=== PATIENT | female | born 1965 | race Caucasian/White ===

== ENCOUNTER 2019-10-06 17:06 | Emergency (ER) | payer MEDICARE ==
[~2019-10-06] VITALS: Ht 160 cm; Wt 49.9 kg
[2019-10-06] MEDS ORDERED: KETOROLAC TROMETHAMINE 15 MG INJ ONE (17:26)
[2019-10-06] MEDS ORDERED: ONDANSETRON 4 MG/2 ML VIAL ONE ×2 (17:27→18:11)
[2019-10-06] MEDS ORDERED: HYDROMORPHONE 1 MG/1 ML DISP.SYRIN ONE (17:27)
[2019-10-06] MEDS ORDERED: IV NORMAL SALINE 250 ML IV ONE (17:28)
[2019-10-06] MEDS ORDERED: IOHEXOL 300MG/ML 100 ML INFUS..BTL ONE (17:28)
[2019-10-06] MEDS ORDERED: SWABABLE VALVE TRANSFER SET EA MC ONE (17:28)
[2019-10-06] MEDS ORDERED: IV NORMAL SALINE 1000 ML BAG IV ONE (17:30)
[2019-10-06] MEDS ORDERED: HYDROMORPHONE 1 MG/1 ML DISP.SYRIN IV ONE (17:30)
[2019-10-06] MEDS ORDERED: ONDANSETRON 4 MG/2 ML VIAL IV ONE ×2 (17:30→18:15)
[2019-10-06] MEDS ORDERED: KETOROLAC TROMETHAMINE 15 MG INJ IVP ONE (17:30)
[2019-10-06 17:35] LABS: BASOPHILS # (AUTO) 0.1 K/uL (0.0-8.0); BASOPHILS % (AUTO) 0.6 % (0.0-2.0); HEMATOCRIT 37.7 % (31.2-41.9); HEMOGLOBIN 12.5 g/dL (10.9-14.3); LYMPHOCYTES # (AUTO) 0.7 K/uL (20.0-40.0); LYMPHOCYTES % (AUTO) 7.8 % (20.5-51.5); MEAN CORPUSCULAR HEMOGLOBIN 29.4 uug (24.7-32.8); MEAN CORPUSCULAR HGB CONC 33 g/dL (32.3-35.6); MEAN CORPUSCULAR VOLUME 88.4 fL (75.5-95.3); MONOCYTES # (AUTO) 0.4 K/uL (2.0-10.0); MONOCYTES % (AUTO) 4.6 % (0.0-11.0); NEUTROPHILS # (AUTO) 7.9 K/uL (1.8-8.9); PLATELET COUNT (AUTO) 358 K/uL (179-408); RED BLOOD CELL COUNT(AUTO) 4.26 MIL/uL (3.63-4.92)
[2019-10-06 17:54] LABS: POTASSIUM 3.8 mmol/L (3.5-5.1)
[2019-10-06 17:58] LABS: BILIRUBIN,DIRECT 0.2 mg/dL (0.0-0.2); BILIRUBIN,TOTAL 0.7 mg/dL (0.2-1.0); TOTAL PROTEIN, SERUM 7.4 g/dL (6.4-8.2)
[2019-10-06] MEDS ORDERED: LORAZEPAM 2 MG/1 ML VIAL ONE ×2 (18:11→18:58)
[2019-10-06] MEDS ORDERED: LORAZEPAM 2 MG/1 ML VIAL IV ONE ×2 (18:15→19:00)
[2019-10-06] MEDS ORDERED: METOCLOPRAMIDE HCL 10 MG/2 ML VIAL ONE (18:58)
[2019-10-06] MEDS ORDERED: METOCLOPRAMIDE HCL 10 MG/2 ML VIAL IV ONE (19:00)
--- NOTE | 2019-10-06 19:05 | NUR ---
Patient transported to CT in stable condition.
--- NOTE | 2019-10-06 19:15 | NUR ---
Patient back in room from CT in stable condition.
--- NOTE | 2019-10-06 19:20 | NUR ---
BIB [facility] for c/o n/v. A/Ox4. Patient appears very shaky, tremulous, does not speak in complete sentences and refuses to provide answers due to her eqpigastric pain. Respiratory rate tachypneic, instructed patient to slow down her breathing. No acute cardiovascular distress noted.
[2019-10-06 20:17] LABS: ETHANOL < 3 MG/DL (0-0)
[2019-10-06] MEDS ORDERED: PANTOPRAZOLE SODIUM 40 MG VIAL IV ONE (20:30)
[2019-10-06] MEDS ORDERED: LIDOCAINE VISCUS 2% 15 ML UDC MM ONE (20:30)
[2019-10-06] MEDS ORDERED: MAG HYDROX/AL HYDROX/SIMETH 30 ML LIQUID UDC PO ONE (20:30)
[2019-10-06] MEDS ORDERED: LIDOCAINE VISCUS 2% 15 ML UDC ONE (21:04)
[2019-10-06] MEDS ORDERED: PANTOPRAZOLE SODIUM 40 MG VIAL ONE (21:04)
[2019-10-06] MEDS ORDERED: MAG HYDROX/AL HYDROX/SIMETH 30 ML LIQUID UDC ONE (21:04)
--- NOTE | 2019-10-06 22:08 | NUR ---
IV removed. Catheter intact and site benign. Pressure and 4x4 gauze applied to site. No bleeding noted.
[2019-10-06 22:11] VITALS: BP 115/66
[2019-10-08] MEDS ORDERED: ONDA4TAB5 SL (16:44)
[2019-10-08] MEDS ORDERED: QUET200T PO (16:44)
== END 2019-10-06 22:22 | disposition home or self-care (01) ==
LOC: ER 17:08
DX: K29.70 Gastritis, unspecified, without bleeding (principal); F15.90 Other stimulant use, unspecified, uncomplicated; Z88.5 Allergy status to narcotic agent; Z95.0 Presence of cardiac pacemaker
CPT/HCPCS: 36415; 71045; 74177; 80048; 80076; 83605; 83690; 84484; 85025; 93005; 96361; 96374; 96375; 96376; 99284; C9113; G0480; J1170; J1885; J2060 ×2; J2405 ×2; J2765; Q9967; 70030-TC; A4663; J7030; J7050

== ENCOUNTER 2019-10-08 13:56 | Inpatient (IN) | END 2019-10-15 15:30 | DRG 439 | DX: K85.10 Biliary acute pancreatitis without necrosis or infection (principal); N39.0 Urinary tract infection, site not specified; E87.6 Hypokalemia; Z98.84 Bariatric surgery status; Z90.710 Acquired absence of both cervix and uterus; K31.84 Gastroparesis; Z95.0 Presence of cardiac pacemaker; F41.9 Anxiety disorder, unspecified; D64.9 Anemia, unspecified; K83.8 Other specified diseases of biliary tract; Z90.49 Acquired absence of other specified parts of digestive tract; K29.00 Acute gastritis without bleeding; K20.9 Esophagitis, unspecified; K59.00 Constipation, unspecified; Z63.8 Other specified problems related to primary support group ==

== ENCOUNTER 2019-10-15 13:33 | Inpatient (IN) | payer MEDICARE ==
[~2019-10-15] VITALS: Ht 160 cm; Wt 55.3 kg
[~2019-10-15 13:33] MED LIST: ONDA4TAB5 SL; QUET200T PO
--- NOTE | 2019-10-15 15:15 | NUR ---
PATIENT ADMITTED FROM MEDSURGE FLOOR, FROM HOME, TO REHAB UNIT FOR GENERALIZED WEAKNESS, AND DECONDITIONING, ALERT, ORIENTED X4, VERBALLY RESPONSIVE ,NO SOB,RESP EVEN NONLABORED, ABLE TO VERBALIZE HER NEEDS KNOW, SKIN WARM AND DRY TO TOUCH, PATIENT STILL ON FULL LIQUID DIET, HISTORY OF MULTIPLE ABDOMINAL SURGERIES, ADMITTED ON MEDSURGE FLOOR FOR ABDOMINAL PAIN AND IMPACTION, ABDOMEN SOFT AND NONTENDER. BEDSIDE, PATIENT HAS HER PURSE AND SOME MONEY IN IT, EXPLAINED TO AND PATIENT THAT ANYTHING IS NOT PLACED IN SAFE, FACILITY IS NOT RESPONSIBLE FOR LOSS. PATIENT AND VERBALIZED UNDERSTANDING OF IT, AND REFUSED TO PUT IN SAFE, STATED HE IS GOING TO TAKE IT HOME. PATIENT AND REFUSED TO COUNT THE MONEY WITH NURSE. PATIENT GETS EPISODE OF SEVERE ANXIETY, REQUESTED ATIVAN TO BE GIVEN ORDERED, DR REMY APPROVED IT AND DR REMY STATED SHE IS GOING TO RECON THE MEDS. NO SKIN ISSUES NOTED, EXCEPT MILD RASH TO RIGHT CHEST.
[2019-10-15] MEDS ORDERED: LORA2TAB95 PO (16:00)
[2019-10-15 16:46] VITALS: BP 115/70
[2019-10-15] MEDS: LORAZEPAM 1 MG TABLET PO SCH (17:45)
[2019-10-15 19:32] VITALS: BP 108/68
[2019-10-15] MEDS: QUETIAPINE FUMARATE 200 MG TABLET PO SCH (20:15)
--- NOTE | 2019-10-15 21:15 | NUR ---
resting in bed upon initial rounds. at bedside. VSS. Needs attended. Voiding freely in the bedpan. Admitted for general weakness and deconditioning. Denies any pain at this time. Will monitor patient. Kept comfortable.Fall precautions maintained. Siderails up for safety. Call nicolas within reach.
[2019-10-15] MEDS: MIRTAZAPINE 15 MG TABLET PO SCH (22:56)
[2019-10-16 05:56] VITALS: BP 126/66
--- NOTE | 2019-10-16 06:50 | NUR ---
slept well most of the shift. in with patient. needs attended. voiding freely in bedpan. denies any pain nor any discomfort. seen by Dr Khan. Remeron given per MD's order. VSS. No acute distress noted. Will monitor patient.
[2019-10-16 08:00] VITALS: BP 115/60
[2019-10-16] MEDS: LORAZEPAM 1 MG TABLET PO SCH ×2 (08:36→18:04)
[2019-10-16] MEDS: QUETIAPINE FUMARATE 200 MG TABLET PO SCH ×4 (08:37→20:42)
[2019-10-16] MEDS ORDERED: Medication Not On Formulary EA (Lorazepam (Ativan) 2 MG) PO SCH (09:00)
--- NOTE | 2019-10-16 10:36 | NUR ---
INTERDISCIPLINARY TEAM CONFERENCE
--- NOTE | 2019-10-16 10:48 | NUR ---
10:20am: BELGICA received a phone call from Davin at [facility], , who was following up on the APS report that this SW had made yesterday, 10/15/19 (see SS note in med/surg chart, #[id number]). Davin wanted to inquire about patient's location. BELGICA informed Lizbeth that patient is currently in the hospital's ARU unit. Davin initially stated that the assigned APS SW will visit the patient at home on 10/23/19, but when this SW informed Davin that patient will probably be in ARU for about 10 days, Davin stated that she will then have the assigned APS SW visit the patient at the hospital. Davin stated that the assigned [facility] SW is Moni Martinez, . BELGICA informed ARU SAMPSON Moura, ARU SW's Elliei and Svitlana, ARU Bread Slicer Machine Berry Gray, and Director Starr Sandoval of all above.
--- NOTE | 2019-10-16 13:58 | NUR ---
Social Work Note: log pond worker met with this patient and patient presented anxious. Patient stated that she is living with her friend Rosalba [phone]. Patient expressed her friend is involved in her care, but didnt mention that her boyfriend is involved. Her boyfriend was present while I was asking her these questions. She stated that she has two children one is 34 and the other is 32. She said that one is out of town and the other is on vacation. She refused any resources and said that her friend will take care of her. Something feels off. Addendum: 10/16/19 at 1400 by BELGICA RIGGINS Social Work Note: log pond worker met with this patient and patient presented anxious. Patient stated that she is living with her friend Rosalba [phone]. Patient expressed her friend is involved in her care, but didnt mention that her boyfriend is involved. Her boyfriend was present while publicity writer was asking her these questions. She stated that she has two children one is 34 and the other is 32. She said that one is out of town and the other is on vacation. She refused any resources and said that her friend will take care of her. log pond worker will follow up and provide patient with resources if needed.
--- NOTE | 2019-10-16 14:00 | NUR ---
Prop Sawyer Note/APS Contact: cinder worker spoke to Moni ([phone]) and updated her that patient lives with her friend Rosalba ([phone]) and that she is involved in her care. cinder worker also informed that patient has two sons one 34 and the other 32 and that they are both out of town. Moni will follow up with this case with medical social consultant.
[2019-10-16] MEDS ORDERED: PERP4TAB11 PO (16:46)
[2019-10-16] MEDS ORDERED: FLUD0.1T PO (16:46)
[2019-10-16] MEDS ORDERED: GABA-534 PO (16:46)
[2019-10-16] MEDS ORDERED: BUSP15TA3 PO (16:46)
[2019-10-16] MEDS ORDERED: LORA-258 PO (16:46)
[2019-10-16] MEDS ORDERED: AMIT100T2 PO (16:46)
[2019-10-16] MEDS ORDERED: HYDR50CA5 PO (16:46)
[2019-10-16] MEDS ORDERED: MONT10TA25 PO (16:46)
[2019-10-16] MEDS ORDERED: ESOM40CA PO (16:46)
[2019-10-16] MEDS ORDERED: MIDO5TAB5 PO (16:46)
[2019-10-16] MEDS ORDERED: QUET200T PO (16:46)
[2019-10-16] MEDS ORDERED: CITA40TA11 PO (16:46)
[2019-10-16 17:00] VITALS: BP 106/51
--- NOTE | 2019-10-16 18:32 | NUR ---
Patient is alert, oriented x 3 not in any distress, on room air. She denies any pain or discomfort. Due medications administered and tolerated well. Assisted patient to the bathroom to void then back to bed. Needs attended to promptly. Boyfriend at bedside. Call light and frequently used items placed within reach.
--- NOTE | 2019-10-16 19:40 | NUR ---
Received patient in bed. AAO x4. Not in acute distress or SOB. Able to make needs known. On room air. No Complain of pain. Her boyfriend at the bedside. Physical assessment done. Fall prevention observed. Safety measures maintained. Bed in low and lock position, alarm on, side rails up x2 for safety. Call light and frequently used items within reach. Continue to monitor.
[2019-10-16 19:41] VITALS: BP 125/65
[2019-10-16] MEDS: MIRTAZAPINE 15 MG TABLET PO SCH (20:42)
[2019-10-16] MEDS ORDERED: MIRTAZAPINE 15 MG TABLET PO SCH (21:00)
--- NOTE | 2019-10-16 21:45 | NUR ---
Patient asked for Amitriptyline tab, stated that she takes this medication for sleep. Contacted the medical center on-call doctor, received order of amitriptyline 50 mg HS from Wade YIN. Patient has also Remeron 7.5 mg tab scheduled at 2100. According to the pharmacy, Remeron was DC and amitriptyline 50 mg was replaced to 2100 scheduled medication, effective from 10/17/19. Patient was aware of new order.
[2019-10-17 05:24] VITALS: BP 104/52
[2019-10-17 08:07] VITALS: BP 107/67
[2019-10-17] MEDS: QUETIAPINE FUMARATE 200 MG TABLET PO SCH ×4 (08:45→21:02)
[2019-10-17] MEDS: LORAZEPAM 1 MG TABLET PO SCH (08:45)
--- NOTE | 2019-10-17 10:20 | NUR ---
Dr. Khan in the unit, received an order to advance diet as tolerated.
[2019-10-17] MEDS ORDERED: HYDROXYZINE PAMOATE 50 MG PO PRN (10:30)
--- NOTE | 2019-10-17 10:39 | NUR ---
Notified Dr. Khan regarding home medication list confirmed from [facility] pharmacy and per MD she will look into it.
[2019-10-17] MEDS: FLUDROCORTISONE ACETATE 0.1 MG TABLET PO SCH ×2 (12:54→18:11)
[2019-10-17] MEDS: GABAPENTIN 300 MG CAPSULE PO SCH ×3 (12:56→21:02)
[2019-10-17] MEDS: busPIRone 5 MG TABLET PO SCH ×3 (12:59→21:02)
[2019-10-17] MEDS: NYSTATIN SUSPENSION 5 ML LIQUID UDC PO SCH ×3 (12:59→23:49)
[2019-10-17] MEDS ORDERED: Medication Not On Formulary EA (Buspirone Hcl 15 MG) PO SCH (13:00)
[2019-10-17] MEDS: MIDODRINE HCL 5 MG TABLET PO SCH ×2 (13:06→18:12)
--- NOTE | 2019-10-17 15:00 | NUR ---
Patient is up ambulating with walker with physical therapist, no complain of any pain or discomfort at this time.
[2019-10-17] MEDS ORDERED: PERPHENAZINE 4 MG TABLET PO SCH (17:00)
[2019-10-17 17:45] VITALS: BP 101/64
[2019-10-17] MEDS: LORAZEPAM 0.5 MG TABLET PO SCH (18:10)
[2019-10-17] MEDS ORDERED: Medication Not On Formulary EA (Amitriptyline Hcl 100 MG) PO SCH (21:00)
[2019-10-17] MEDS ORDERED: AMITRIPTYLINE HCL 50 MG TABLET PO SCH (21:00)
[2019-10-17] MEDS: AMITRIPTYLINE HCL 50 MG TABLET PO SCH (21:02)
[2019-10-17] MEDS: MONTELUKAST SODIUM 10 MG TABLET PO SCH (21:02)
[2019-10-17 22:28] VITALS: BP 96/60
[2019-10-18] MEDS: NYSTATIN SUSPENSION 5 ML LIQUID UDC PO SCH ×4 (06:01→23:28)
[2019-10-18] MEDS: PANTOPRAZOLE SODIUM 40 MG TABLET.DR PO SCH (06:02)
[2019-10-18 06:31] VITALS: BP 90/68
[2019-10-18 08:15] VITALS: BP 100/62
[2019-10-18] MEDS: FLUDROCORTISONE ACETATE 0.1 MG TABLET PO SCH ×2 (08:44→17:01)
[2019-10-18] MEDS: QUETIAPINE FUMARATE 200 MG TABLET PO SCH ×4 (08:44→21:43)
[2019-10-18] MEDS: MIDODRINE HCL 5 MG TABLET PO SCH ×3 (08:44→17:02)
[2019-10-18] MEDS: LORAZEPAM 0.5 MG TABLET PO SCH ×2 (08:44→17:01)
[2019-10-18] MEDS: GABAPENTIN 300 MG CAPSULE PO SCH ×4 (08:44→21:43)
[2019-10-18] MEDS: CITALOPRAM 20 MG TABLET PO SCH (08:47)
[2019-10-18] MEDS: busPIRone 5 MG TABLET PO SCH ×4 (08:49→21:41)
[2019-10-18] MEDS ORDERED: Medication Not On Formulary EA (Esomeprazole Mag Trihydrate (Nexium) 40 MG) PO SCH (09:00)
[2019-10-18] MEDS ORDERED: Medication Not On Formulary EA (Citalopram Hydrobromide (Citalopram Hbr) 40 MG) PO SCH (09:00)
[2019-10-18 16:00] VITALS: BP 95/62
--- NOTE | 2019-10-18 19:53 | NUR ---
pt in bed, alert and orientation. states she is very sleepy. Denies any pain, no fever, no nausea and no vomiting. Ambulates with johana Addendum: 10/19/19 at 0200 by ELICIA PARSON RN pt in bed, alert and orientation. states she is very sleepy. Denies any pain, no fever, no nausea and no vomiting. Ambulates with walker
[2019-10-18 20:27] VITALS: BP 96/58
[2019-10-18] MEDS: AMITRIPTYLINE HCL 50 MG TABLET PO SCH (21:42)
[2019-10-18] MEDS: MONTELUKAST SODIUM 10 MG TABLET PO SCH (21:43)
[2019-10-19 05:10] VITALS: BP 114/61
[2019-10-19] MEDS: NYSTATIN SUSPENSION 5 ML LIQUID UDC PO SCH ×4 (06:06→23:15)
[2019-10-19] MEDS: PANTOPRAZOLE SODIUM 40 MG TABLET.DR PO SCH (06:06)
[2019-10-19] MEDS: GABAPENTIN 300 MG CAPSULE PO SCH ×4 (08:43→21:07)
[2019-10-19] MEDS: LORAZEPAM 0.5 MG TABLET PO SCH ×2 (08:43→17:21)
[2019-10-19] MEDS: busPIRone 5 MG TABLET PO SCH ×4 (08:44→21:09)
[2019-10-19] MEDS: MIDODRINE HCL 5 MG TABLET PO SCH ×3 (08:44→17:24)
[2019-10-19] MEDS: CITALOPRAM 20 MG TABLET PO SCH (08:45)
[2019-10-19] MEDS: FLUDROCORTISONE ACETATE 0.1 MG TABLET PO SCH ×2 (08:45→17:21)
[2019-10-19] MEDS: QUETIAPINE FUMARATE 200 MG TABLET PO SCH ×4 (08:46→21:08)
[2019-10-19 09:10] VITALS: BP 100/64
[2019-10-19] MEDS: BISACODYL 10 MG SUPP.RECT RC PRN (12:20)
[2019-10-19 16:20] VITALS: BP 88/42
[2019-10-19 20:14] VITALS: BP 98/56
[2019-10-19] MEDS: MONTELUKAST SODIUM 10 MG TABLET PO SCH (21:08)
[2019-10-19] MEDS: AMITRIPTYLINE HCL 50 MG TABLET PO SCH (21:09)
--- NOTE | 2019-10-20 05:03 | NUR ---
Received patient in bed. AAO x4. Not in acute distress or SOB. Able to make needs known. Her boyfriend at the bedside. Physical assessment done. All due medications given as ordered and well tolerated. Fall prevention observed. Safety measures maintained. All needs attended promptly. Bed in low and lock position, alarm on, side rails up x2 for safety. Call light and frequently used items within reach. Continue to monitor and will endorse to the oncoming nurse accordingly.
[2019-10-20 05:22] VITALS: BP 93/56
[2019-10-20] MEDS: PANTOPRAZOLE SODIUM 40 MG TABLET.DR PO SCH (06:23)
[2019-10-20] MEDS: NYSTATIN SUSPENSION 5 ML LIQUID UDC PO SCH ×3 (06:23→17:19)
[2019-10-20 07:43] VITALS: BP 98/53
[2019-10-20] MEDS: QUETIAPINE FUMARATE 200 MG TABLET PO SCH ×4 (08:21→20:53)
[2019-10-20] MEDS: busPIRone 5 MG TABLET PO SCH ×4 (08:21→20:52)
[2019-10-20] MEDS: LORAZEPAM 0.5 MG TABLET PO SCH ×2 (08:22→17:18)
[2019-10-20] MEDS: GABAPENTIN 300 MG CAPSULE PO SCH ×4 (08:22→20:52)
[2019-10-20] MEDS: CITALOPRAM 20 MG TABLET PO SCH (08:22)
[2019-10-20] MEDS: FLUDROCORTISONE ACETATE 0.1 MG TABLET PO SCH ×2 (08:22→17:19)
[2019-10-20] MEDS: MIDODRINE HCL 5 MG TABLET PO SCH ×3 (08:22→17:19)
--- NOTE | 2019-10-20 09:33 | NUR ---
Received pt. in bed A/Ox4 verbally responsive and able to make her needs known. In no acute distress, tolerating RA well. Significant other at bedside for support. All due AM medications administered as ordered with no ASE. Pt. teaching provided regarding meds. No new skin condition noted, skin remain intact. All pt. needs attended and met promptly. Safety measures in place. Call light and all frequently used items within pt. reach. Will continue to monitor accordingly.
--- NOTE | 2019-10-20 13:42 | NUR ---
Pt c/o of indigestion. Dr. Liu aware and ordered Mylanta 30 mg po q6h PRN. Orders noted and carried out. Pt. made aware.
[2019-10-20] MEDS ORDERED: MAG HYDROX/AL HYDROX/SIMETH 30 ML LIQUID UDC PO PRN (13:45)
[2019-10-20 14:57] VITALS: BP 91/52
--- NOTE | 2019-10-20 18:01 | NUR ---
EOS: No significant change during this shift. All due medications administered as ordered. SBP in the 90's, scheduled Midodrine given, denies lightheadedness or dizziness. No new skin condition. All pt. needs attended and met promptly. Safety measures in place. Call light and all frequently used items within pt. reach.
[2019-10-20 20:40] VITALS: BP 120/57
[2019-10-20] MEDS: MONTELUKAST SODIUM 10 MG TABLET PO SCH (20:52)
[2019-10-20] MEDS: AMITRIPTYLINE HCL 50 MG TABLET PO SCH (20:53)
--- NOTE | 2019-10-20 21:00 | NUR ---
Patient developed a low blood pressure. BP checked two times: 84/52, 81/51 HR:91. No other symptoms presents. Encouraged patient to drink more water and juice. Rechecked BP after one hour and drinking more fluid. BP: 120/57 HR:90. Continue to monitor.
[2019-10-21] MEDS: NYSTATIN SUSPENSION 5 ML LIQUID UDC PO SCH ×4 (00:06→17:01)
[2019-10-21 04:00] VITALS: BP 87/56
[2019-10-21] MEDS: PANTOPRAZOLE SODIUM 40 MG TABLET.DR PO SCH (06:16)
[2019-10-21 07:32] LABS: BASOPHILS % (AUTO) 1.3 % (0.0-2.0); EOSINOPHILS % (AUTO) 1.4 % (0.0-7.0); HEMATOCRIT 33.5 % (31.2-41.9); HEMOGLOBIN 10.9 g/dL (10.9-14.3); LYMPHOCYTES # (AUTO) 0.8 K/uL (20.0-40.0); LYMPHOCYTES % (AUTO) 32.9 % (20.5-51.5); MEAN CORPUSCULAR HEMOGLOBIN 29.4 uug (24.7-32.8); MEAN CORPUSCULAR HGB CONC 33 g/dL (32.3-35.6); MEAN CORPUSCULAR VOLUME 90.3 fL (75.5-95.3); MONOCYTES # (AUTO) 0.5 K/uL (2.0-10.0); MONOCYTES % (AUTO) 18.7 % (0.0-11.0); NEUTROPHILS # (AUTO) 1.1 K/uL (1.8-8.9); NEUTROPHILS % (AUTO) 45.7 % (38.5-71.5); PLATELET COUNT (AUTO) 266 K/uL (179-408); RED BLOOD CELL COUNT(AUTO) 3.71 MIL/uL (3.63-4.92); WHITE BLOOD COUNT (AUTO) 2.5 K/uL (3.8-11.8)
[2019-10-21 07:40] VITALS: BP 99/52
[2019-10-21 07:47] LABS: BILIRUBIN,TOTAL 0.2 mg/dL (0.2-1.0); CREATININE 0.8 mg/dL (0.6-1.3); MAGNESIUM 2.2 mg/dL (1.8-2.4); PHOSPHOROUS 3.8 mg/dL (2.5-4.9); POTASSIUM 3.8 mmol/L (3.5-5.1); TOTAL PROTEIN, SERUM 6.4 g/dL (6.4-8.2)
[2019-10-21] MEDS: GABAPENTIN 300 MG CAPSULE PO SCH ×4 (08:38→20:58)
[2019-10-21] MEDS: LORAZEPAM 0.5 MG TABLET PO SCH ×2 (08:39→16:54)
[2019-10-21] MEDS: MIDODRINE HCL 5 MG TABLET PO SCH ×3 (08:40→16:55)
[2019-10-21] MEDS: busPIRone 5 MG TABLET PO SCH ×4 (08:40→20:58)
[2019-10-21] MEDS: CITALOPRAM 20 MG TABLET PO SCH (08:41)
[2019-10-21] MEDS: QUETIAPINE FUMARATE 200 MG TABLET PO SCH ×4 (08:41→20:58)
[2019-10-21] MEDS: FLUDROCORTISONE ACETATE 0.1 MG TABLET PO SCH ×2 (08:42→16:54)
[2019-10-21] MEDS: BISACODYL 10 MG SUPP.RECT RC PRN (09:20)
[2019-10-21 09:52] LABS: EOSINOPHILS % (MANUAL) 1 % (0-8); LYMPHOCYTES % (MANUAL) 32 % (20-40); MONOCYTES % (MANUAL) 18 % (2-10)
[2019-10-21 09:53] LABS: NEUTROPHILS % (MANUAL) 49 % (42-75)
--- NOTE | 2019-10-21 10:06 | NUR ---
Notified Dr. Liu regarding abnormal results with no new orders.
[2019-10-21 14:49] VITALS: BP 94/59
[2019-10-21] MEDS: HYDROMORPHONE HCL 2 MG TABLET PO PRN (18:47)
--- NOTE | 2019-10-21 19:43 | NUR ---
Received an order from Dr. Liu for Ativan 0.5mg PO Q8hrs PRN.
--- NOTE | 2019-10-21 20:00 | NUR ---
Received patient laying in bed. Family at bedside. No acute distress noted. A/O x4. Denies SOB. Reports epigastric pain. Pace maker on the left upper chest wall. senior care assessment done. Skin intact. Vitals stable. B/P 96/66. Safety initiated. Call light within reach. Will closely monitor.
[2019-10-21] MEDS: MONTELUKAST SODIUM 10 MG TABLET PO SCH (20:59)
[2019-10-21 21:31] VITALS: BP 107/43
[2019-10-21] MEDS: AMITRIPTYLINE HCL 50 MG TABLET PO SCH (22:31)
[2019-10-21] MEDS: ONDANSETRON HCL 4 MG TABLET PO PRN (22:31)
[2019-10-22] MEDS: NYSTATIN SUSPENSION 5 ML LIQUID UDC PO SCH ×5 (00:09→23:13)
[2019-10-22] MEDS: HYDROMORPHONE HCL 2 MG TABLET PO PRN ×4 (00:09→22:41)
--- NOTE | 2019-10-22 00:09 | NUR ---
Patient c/o of epigastric pain 05/30. Vital signs stable. Dilaudid given, will closely monitor.
--- NOTE | 2019-10-22 05:35 | NUR ---
Patient slept intermittently t/o shift. C/O epigastric pain 04/29. Medication given, stated relief. Vital signs stable. Safety and comfort measures maintained t/o shift. All meds given as ordered. All needs met.
[2019-10-22 05:48] VITALS: BP 112/59
[2019-10-22] MEDS: PANTOPRAZOLE SODIUM 40 MG TABLET.DR PO SCH (06:19)
[2019-10-22] MEDS: LORAZEPAM 0.5 MG TABLET PO PRN (06:19)
--- NOTE | 2019-10-22 06:24 | NUR ---
Patient reports feeling anxious. Ativan given. Will continue to monitor.
[2019-10-22 07:30] VITALS: BP 111/44
[2019-10-22] MEDS: ONDANSETRON HCL 4 MG TABLET PO PRN ×2 (07:46→16:28)
[2019-10-22] MEDS: GABAPENTIN 300 MG CAPSULE PO SCH ×4 (08:30→21:50)
[2019-10-22] MEDS: CITALOPRAM 20 MG TABLET PO SCH (08:30)
[2019-10-22] MEDS: FLUDROCORTISONE ACETATE 0.1 MG TABLET PO SCH ×2 (08:30→16:28)
[2019-10-22] MEDS: QUETIAPINE FUMARATE 200 MG TABLET PO SCH ×4 (08:30→21:51)
[2019-10-22] MEDS: busPIRone 5 MG TABLET PO SCH ×4 (08:30→21:51)
[2019-10-22] MEDS: LORAZEPAM 0.5 MG TABLET PO SCH ×2 (08:30→17:24)
[2019-10-22] MEDS: MIDODRINE HCL 5 MG TABLET PO SCH ×3 (08:31→16:28)
[2019-10-22 15:32] VITALS: BP 87/47
--- NOTE | 2019-10-22 19:35 | NUR ---
Received patient in bed. AAO x4. Not in acute distress or SOB. Able to make needs known. Her boyfriend at the bedside. Physical assessment done. Fall prevention observed. Safety measures maintained. Bed in low and lock position, alarm on, side rails up x2 for safety. Call light and frequently used items within reach. Continue to monitor.
[2019-10-22 19:53] VITALS: BP 94/49
--- NOTE | 2019-10-22 21:00 | NUR ---
Patient developed a low blood pressure. BP checked two times: 84/48, 81/51 HR:88. No other symptoms presents. Encouraged patient to drink more water and juice. Rechecked BP after half an hour and drinking more fluid. BP: 96/49 HR:85. Continue to monitor.
[2019-10-22] MEDS: AMITRIPTYLINE HCL 50 MG TABLET PO SCH (21:52)
[2019-10-22] MEDS: MONTELUKAST SODIUM 10 MG TABLET PO SCH (21:52)
--- NOTE | 2019-10-22 22:45 | NUR ---
Patient complained of abdominal pain in the epigastric area, rated 6/10 in numeric scale and asked for Dilaudid. PRN Dilaudid 1 mg (half of the 2 mg tab) was administered. Continue to monitor.
[2019-10-23 05:40] VITALS: BP 90/41
[2019-10-23] MEDS: PANTOPRAZOLE SODIUM 40 MG TABLET.DR PO SCH (06:30)
[2019-10-23] MEDS: NYSTATIN SUSPENSION 5 ML LIQUID UDC PO SCH ×3 (06:30→17:22)
--- NOTE | 2019-10-23 06:56 | NUR ---
During morning assessment, patient complained of frequency and burning sensation of urination. Stated, "I went to the bathroom 4 times and because of that I didn't have a good sleep last night". Continue to monitor and will endorse to the day shift nurse to discuss with doctor.
[2019-10-23 07:48] VITALS: BP 95/49
[2019-10-23] MEDS: FLUDROCORTISONE ACETATE 0.1 MG TABLET PO SCH ×2 (08:36→16:33)
[2019-10-23] MEDS: CITALOPRAM 20 MG TABLET PO SCH (08:36)
[2019-10-23] MEDS: MIDODRINE HCL 5 MG TABLET PO SCH ×3 (08:36→16:33)
[2019-10-23] MEDS: GABAPENTIN 300 MG CAPSULE PO SCH ×4 (08:36→21:43)
[2019-10-23] MEDS: QUETIAPINE FUMARATE 200 MG TABLET PO SCH ×4 (08:37→21:43)
[2019-10-23] MEDS: LORAZEPAM 0.5 MG TABLET PO SCH ×2 (08:37→16:33)
[2019-10-23] MEDS: busPIRone 5 MG TABLET PO SCH ×4 (08:38→21:34)
[2019-10-23] MEDS: ONDANSETRON HCL 4 MG TABLET PO PRN ×2 (09:35→16:34)
[2019-10-23] MEDS: BISACODYL 10 MG SUPP.RECT RC PRN (10:02)
[2019-10-23 12:40] LABS: *BILIRUBIN,URIN NEGATIVE (NEGATIVE); *BLOOD, URINE NEGATIVE (NEGATIVE); *CLARITY,URINE CLEAR (CLEAR); *COLOR,URINE YELLOW (YELLOW); *KETONES,URINE NEGATIVE (NEGATIVE); *UROBILINOGEN,URINE 0.2 E.U./dl (NORMAL); LEUKOCYTE ESTERASE ,URINE TRACE (NEGATIVE); NITRITE, URINE NEGATIVE (NEGATIVE); UGLUCOSE NEGATIVE (NEGATIVE)
[2019-10-23 12:48] LABS: RBC,URINE 0-3 /HPF (0-3)
[2019-10-23 12:50] LABS: BACTERIA,URINE NONE SEEN /HPF (NONE SEEN); SQUAMOUS EPITHELIAL CELL,UR FEW /HPF (NONE SEEN)
--- NOTE | 2019-10-23 13:20 | NUR ---
INTERDISCIPLINARY TEAM CONFERENCE
[2019-10-23] MEDS: HYDROMORPHONE HCL 2 MG TABLET PO PRN ×3 (14:22→22:48)
[2019-10-23 15:01] VITALS: BP 92/43
--- NOTE | 2019-10-23 15:22 | NUR ---
Patient continue pain management if needed. Continue therapy for strenght and endurance. not in distress. no behavioral problem noted. Complaint of nausea. Zofran 4mg PRN given. tolerated well. Change zofran every 6 to jody 4 hours. MD notified. Patient complaint of pain while urinating . urine collected for UA/CS. MD aware. For dietary consult for less appetite and GI consult for abdominal pain. will continue monitor
--- NOTE | 2019-10-23 15:45 | NUR ---
Patient seen by game artist. Consider adding multivitamin and ensure BID mealtime. will continue monitor
--- NOTE | 2019-10-23 18:20 | NUR ---
Patient urinalysis result relayed to MD Liu. ordered and to start macrobid 100mg every 12 hours for 3 days.
[2019-10-23 19:43] VITALS: BP 90/50
--- NOTE | 2019-10-23 19:50 | NUR ---
PATIENT ALERT ORIENTED, NO SOB NO CHEST PAIN. PATIENT HAS NO S/S OF PAIN NO NAUSEA NO VOMITING NOTED AT THIS TIME. KEPT COMFORTABLE. WILL CONT TO MONITOR. BOYFRIEND AT BED SIDE, CALL LIGHT WITHIN REACH.
[2019-10-23] MEDS: MONTELUKAST SODIUM 10 MG TABLET PO SCH (21:34)
[2019-10-23] MEDS: AMITRIPTYLINE HCL 50 MG TABLET PO SCH (21:34)
[2019-10-23] MEDS: NITROFURANTOIN/NITROFURAN MAC 100 MG CAPSULE PO SCH (21:34)
--- NOTE | 2019-10-23 22:45 | NUR ---
WITNESSED RN SEEMA ADMINISTER DILAUDID 1MG TO PATIENT AND WASTED 1MG OF DILAUDID.
--- NOTE | 2019-10-23 22:45 | NUR ---
PATIENT GIVEN DILAUDID 1MG PO, AND WASTED 1MG.
[2019-10-24] MEDS: NYSTATIN SUSPENSION 5 ML LIQUID UDC PO SCH ×5 (00:02→23:20)
[2019-10-24 05:43] VITALS: BP 91/47
[2019-10-24] MEDS: PANTOPRAZOLE SODIUM 40 MG TABLET.DR PO SCH (06:05)
[2019-10-24] MEDS: LORAZEPAM 0.5 MG TABLET PO PRN (06:06)
--- NOTE | 2019-10-24 06:40 | NUR ---
PATIENT ALERT ORIENTED, PATIENT STILL HAS EPISODES OF ANXIETY, MEDICATED ORDERED. PATIENT CONT ON PAIN MANAGEMENT, ABDOMINAL PAIN, NO NAUSEA NO VOMITING NOTED, CONT TO MONITOR.
[2019-10-24 08:00] VITALS: BP 90/48
[2019-10-24] MEDS: LORAZEPAM 0.5 MG TABLET PO SCH ×2 (08:44→16:31)
[2019-10-24] MEDS: CITALOPRAM 20 MG TABLET PO SCH (08:45)
[2019-10-24] MEDS: GABAPENTIN 300 MG CAPSULE PO SCH ×4 (08:45→20:31)
[2019-10-24] MEDS: QUETIAPINE FUMARATE 200 MG TABLET PO SCH ×4 (08:46→20:31)
[2019-10-24] MEDS: busPIRone 5 MG TABLET PO SCH ×4 (08:47→20:32)
[2019-10-24] MEDS: NITROFURANTOIN/NITROFURAN MAC 100 MG CAPSULE PO SCH ×2 (08:47→20:31)
[2019-10-24] MEDS: FLUDROCORTISONE ACETATE 0.1 MG TABLET PO SCH ×2 (08:47→16:31)
[2019-10-24] MEDS: MIDODRINE HCL 5 MG TABLET PO SCH ×3 (08:50→16:32)
--- NOTE | 2019-10-24 15:45 | NUR ---
PATIENT IS ALERT, ORIENTED X4, VERABLLY RESPONSIVE, NO SOB, RESP EVEN NONLABORED,SKIN WARM AND DRY TO TOUCH, AMBULATORY WITH FWW, WITH SUPERVISION,, NOTED WITH SCRATCH TO RIGHT UPPER CHEST, NO SIGNS AND SYMPTOMS OF INFECTION NOTED AT SITE OF SCRATCHES, OFFERED PATIENT IF SHE WOULD LIKE TO HAVE SOME HYDROCORTISONE CREAM, PATIENT STATED NO, SHE HAS SOME LOTION SHE LIKES TO RUB ON IT. PATIENT SEEMS CALM, NO PANIC ATTACKS NOTED. PATIENT BOY FRIEND IS BEDSIDE ALL THE TIME. I
[2019-10-24 16:05] VITALS: BP 126/72
[2019-10-24] MEDS: HYDROMORPHONE HCL 2 MG TABLET PO PRN ×2 (17:48→23:46)
--- NOTE | 2019-10-24 19:40 | NUR ---
Awake during initial rounds having snacks. Boyfriend at bedside. Denies pain/discomforts at this time. Safety measure and fall precaution maintained. Continue care as planned.
[2019-10-24 19:49] VITALS: BP 96/54
[2019-10-24] MEDS: MONTELUKAST SODIUM 10 MG TABLET PO SCH (20:31)
[2019-10-24] MEDS: AMITRIPTYLINE HCL 50 MG TABLET PO SCH (20:32)
--- NOTE | 2019-10-24 23:22 | NUR ---
Nystatin suspension not given at this time, sound asleep. Boyfriend at bedside instructed nurse not to wake up patient.
--- NOTE | 2019-10-24 23:50 | NUR ---
Complaint of generalized pain, Dilaudid 0.5 mg given as needed and ordered. Will monitor.
[2019-10-25] MEDS: NYSTATIN SUSPENSION 5 ML LIQUID UDC PO SCH ×4 (05:18→23:49)
[2019-10-25] MEDS: LORAZEPAM 0.5 MG TABLET PO PRN (05:21)
[2019-10-25] MEDS: PANTOPRAZOLE SODIUM 40 MG TABLET.DR PO SCH (05:38)
--- NOTE | 2019-10-25 05:40 | NUR ---
Shift End Report: VS stable. Slept good. Medicated once for pain with relief and once for anxiety. No further complaint presented. No fall/injury reported. All needs attended and met. Boyfriend remain at bedside. No significant event reported all night. Continue current rehab plan of care.
[2019-10-25 05:42] VITALS: BP 100/57
[2019-10-25 08:05] VITALS: BP 98/51
[2019-10-25] MEDS: NITROFURANTOIN/NITROFURAN MAC 100 MG CAPSULE PO SCH (08:40)
[2019-10-25] MEDS: QUETIAPINE FUMARATE 200 MG TABLET PO SCH ×4 (08:40→20:39)
[2019-10-25] MEDS: MIDODRINE HCL 5 MG TABLET PO SCH ×3 (08:40→17:16)
[2019-10-25] MEDS: GABAPENTIN 300 MG CAPSULE PO SCH ×4 (08:40→20:38)
[2019-10-25] MEDS: LORAZEPAM 0.5 MG TABLET PO SCH ×2 (08:41→17:17)
[2019-10-25] MEDS: busPIRone 5 MG TABLET PO SCH ×4 (08:41→20:38)
[2019-10-25] MEDS: CITALOPRAM 20 MG TABLET PO SCH (08:41)
[2019-10-25] MEDS: FLUDROCORTISONE ACETATE 0.1 MG TABLET PO SCH ×2 (08:51→17:16)
[2019-10-25] MEDS: ONDANSETRON HCL 4 MG TABLET PO PRN (14:13)
[2019-10-25 16:16] VITALS: BP 107/56
--- NOTE | 2019-10-25 19:52 | NUR ---
Patient AAO x 4. No acute distress noted. VS taken ans stable. Due medications administered as ordered and scheduled and effective. No c/o pain during shift. family Due medications administered as ordered and scheduled. Needs attended, safety measures in place, call light left at bed side, endorsed to next shift and will continue with care. Addendum: 10/25/19 at 8 by WELLINGTON GARLAND RN RN Patient AAO x 4. No acute distress noted. VS taken ans stable. Due medications administered as ordered and scheduled and effective. No c/o pain during shift. family (boyfriend) at bed side. Due medications administered as ordered and scheduled. Needs attended, safety measures in place, call light left at bed side, endorsed to next shift and will continue with care.
[2019-10-25] MEDS: MONTELUKAST SODIUM 10 MG TABLET PO SCH (20:39)
[2019-10-25] MEDS: AMITRIPTYLINE HCL 50 MG TABLET PO SCH (20:40)
[2019-10-25 22:21] VITALS: BP 100/53
[2019-10-26 04:30] VITALS: BP 118/62
[2019-10-26] MEDS: PANTOPRAZOLE SODIUM 40 MG TABLET.DR PO SCH (06:35)
[2019-10-26] MEDS: NYSTATIN SUSPENSION 5 ML LIQUID UDC PO SCH ×4 (06:35→23:24)
[2019-10-26 08:00] VITALS: BP 112/52
[2019-10-26] MEDS: GABAPENTIN 300 MG CAPSULE PO SCH ×4 (08:10→20:14)
[2019-10-26] MEDS: LORAZEPAM 0.5 MG TABLET PO SCH ×2 (08:10→17:38)
[2019-10-26] MEDS: CITALOPRAM 20 MG TABLET PO SCH (08:11)
[2019-10-26] MEDS: QUETIAPINE FUMARATE 200 MG TABLET PO SCH ×4 (08:11→20:15)
[2019-10-26] MEDS: busPIRone 5 MG TABLET PO SCH ×4 (08:12→20:15)
[2019-10-26] MEDS: FLUDROCORTISONE ACETATE 0.1 MG TABLET PO SCH ×2 (08:12→17:37)
[2019-10-26] MEDS: MIDODRINE HCL 5 MG TABLET PO SCH ×3 (08:14→17:45)
--- NOTE | 2019-10-26 10:48 | NUR ---
Pt received this morning resting in bed. Pt assessed, AOx4, able to make needs known. Pt c/o anxiety over upcoming discharge later this week. Plan of care discussed. Pt complaint with routinely scheduled morning medications including anti-anxiety medication. Cooperative with therapies as offered. All safety and comfort needs attended to. Call light and personal belongings placed within reach. Bed in locked and lowest position. Will continue to monitor.
[2019-10-26] MEDS: LORAZEPAM 0.5 MG TABLET PO PRN (14:14)
--- NOTE | 2019-10-26 14:15 | NUR ---
Pt seen by APS health social work professor regarding safety and plan of care. Pt described feeling anxious. 1 tab Ativan 0.5mg administered per PRN orders. Will continue to monitor and follow up for effectiveness.
[2019-10-26 15:29] VITALS: BP 100/55
[2019-10-26] MEDS: BISACODYL 10 MG SUPP.RECT RC PRN (20:13)
[2019-10-26] MEDS: MONTELUKAST SODIUM 10 MG TABLET PO SCH (20:14)
[2019-10-26] MEDS: AMITRIPTYLINE HCL 50 MG TABLET PO SCH (20:15)
[2019-10-26 20:19] VITALS: BP 104/56
[2019-10-27 05:30] VITALS: BP 116/63
[2019-10-27] MEDS: PANTOPRAZOLE SODIUM 40 MG TABLET.DR PO SCH (06:37)
[2019-10-27] MEDS: NYSTATIN SUSPENSION 5 ML LIQUID UDC PO SCH ×4 (06:37→23:20)
[2019-10-27] MEDS: LORAZEPAM 0.5 MG TABLET PO PRN ×2 (07:36→18:57)
[2019-10-27 07:59] VITALS: BP 105/53
[2019-10-27] MEDS: LORAZEPAM 0.5 MG TABLET PO SCH ×2 (08:42→16:23)
[2019-10-27] MEDS: FLUDROCORTISONE ACETATE 0.1 MG TABLET PO SCH ×2 (08:43→16:26)
[2019-10-27] MEDS: GABAPENTIN 300 MG CAPSULE PO SCH ×4 (08:43→20:29)
[2019-10-27] MEDS: CITALOPRAM 20 MG TABLET PO SCH (08:43)
[2019-10-27] MEDS: busPIRone 5 MG TABLET PO SCH ×4 (08:44→20:29)
[2019-10-27] MEDS: QUETIAPINE FUMARATE 200 MG TABLET PO SCH ×4 (08:45→20:30)
[2019-10-27] MEDS: MIDODRINE HCL 5 MG TABLET PO SCH ×3 (08:46→16:28)
[2019-10-27] MEDS: ONDANSETRON HCL 4 MG TABLET PO PRN (09:06)
[2019-10-27 16:06] VITALS: BP 107/60
--- NOTE | 2019-10-27 17:15 | NUR ---
PATIENT IS ALERT, ORIENTED X4, VERBALLY RESPONSIVE, STILL NOTED WITH EPISODES OF ANXIOUSNESS, BOYFRIEND AT BEDSIDE, MEDICATION ADMINISTERED TO MANAGE WITH ANXIETY. EFFECTIVE AT TIMES. NO OTHER DISTRESS NOTED
--- NOTE | 2019-10-27 19:30 | NUR ---
Received patient in bed asleep, aroused easily. Boyfriend at bedside. No complaints of pain at this time. Safety measures observed. Call light in reach
[2019-10-27 20:12] VITALS: BP 114/68
[2019-10-27] MEDS: AMITRIPTYLINE HCL 50 MG TABLET PO SCH (20:29)
[2019-10-27] MEDS: MONTELUKAST SODIUM 10 MG TABLET PO SCH (20:29)
[2019-10-28] MEDS: NYSTATIN SUSPENSION 5 ML LIQUID UDC PO SCH ×2 (05:29→13:06)
[2019-10-28] MEDS: LORAZEPAM 0.5 MG TABLET PO PRN ×2 (05:29→14:44)
[2019-10-28 05:41] VITALS: BP 93/54
[2019-10-28] MEDS: PANTOPRAZOLE SODIUM 40 MG TABLET.DR PO SCH (06:15)
--- NOTE | 2019-10-28 06:37 | NUR ---
Patient slept well. No c/o pain at this time. PRN Ativan 0.5mg given for anxiety. All needs attended. Will endorse accordingly
[2019-10-28 07:44] VITALS: BP 108/49
[2019-10-28] MEDS: FLUDROCORTISONE ACETATE 0.1 MG TABLET PO SCH (08:31)
[2019-10-28] MEDS: CITALOPRAM 20 MG TABLET PO SCH (08:31)
[2019-10-28] MEDS: QUETIAPINE FUMARATE 200 MG TABLET PO SCH ×2 (08:31→13:06)
[2019-10-28] MEDS: busPIRone 5 MG TABLET PO SCH ×2 (08:31→13:10)
[2019-10-28] MEDS: GABAPENTIN 300 MG CAPSULE PO SCH ×2 (08:31→13:07)
[2019-10-28] MEDS: MIDODRINE HCL 5 MG TABLET PO SCH ×2 (08:32→13:10)
[2019-10-28] MEDS: LORAZEPAM 0.5 MG TABLET PO SCH (08:32)
[2019-10-28 14:42] VITALS: BP 97/53
--- NOTE | 2019-10-28 16:02 | NUR ---
Received patient in bed with boyfriend bedside in stable condition. Ativan 0.5mg PRN given for anxiety. not in distress. Patient discharge to home with home health care around 345pm. Medication list given to patient. Consultation and instruction given to patient. verbalize understanding. not in distress. Patient assisted to back parking via wheelchair with RECREATION ASSISTANT.
== END 2019-10-28 15:45 | disposition home health service (06) | DRG 947 ==
PROVIDERS: ADMIT Physical Medicine & Rehabilitation Pain Medicine; ATTEND Physical Medicine & Rehabilitation Pain Medicine
DX: R53.1 Weakness (principal); K85.10 Biliary acute pancreatitis without necrosis or infection; N39.0 Urinary tract infection, site not specified; D68.59 Other primary thrombophilia; R10.9 Unspecified abdominal pain; D64.9 Anemia, unspecified; F41.9 Anxiety disorder, unspecified; G47.00 Insomnia, unspecified; Z90.49 Acquired absence of other specified parts of digestive tract; Z98.84 Bariatric surgery status; Z90.710 Acquired absence of both cervix and uterus; R11.2 Nausea with vomiting, unspecified; F39 Unspecified mood [affective] disorder; K31.84 Gastroparesis; Z95.0 Presence of cardiac pacemaker; D72.819 Decreased white blood cell count, unspecified; K20.9 Esophagitis, unspecified; K29.00 Acute gastritis without bleeding; K80.50 Calculus of bile duct without cholangitis or cholecystitis without obstruction; Z88.5 Allergy status to narcotic agent; Z88.8 Allergy status to other drugs, medicaments and biological substances
CPT/HCPCS: 36415; 70030-TC; 83690; 83735; 84100; 85025; 87086; 93005; Q0162